=== PATIENT | male | born 1960 | race Caucasian/White ===

== ENCOUNTER → 2018-06-10 | Outpatient (CLI) | payer BC ==
--- NOTE | 2018-06-10 17:56 | CONS ---
CONSULTATION DATE OF SERVICE: 06/10/2018. 58-year-old gentleman who has been re-evaluated in Sleep Center for obstructive sleep apnea-hypopnea syndrome. HISTORY OF PRESENT ILLNESS/SLEEP WAKE EVALUATION: Patient has history of obstructive sleep apnea-hypopnea syndrome since 2005. First sleep study done in our Sleep Center. Since that time patient is on treatment with CPAP every night. Now he is using his second CPAP unit. According to patient, no snoring with the machine. His sleep schedule on working days from 9 p.m. to 4:10 am and on weekends from 10 p.m. to 6 a.m. No problems with falling asleep. No TV in bedroom. He wakes up from sleep once with nocturia. [place] Sleepiness Scale today is significantly increased to 17. I checked patient's CPAP unit. The patient is using equipment every night 29 out of 30 nights for more than 4 hours. Average usage is 7.3 hours. CPAP pressure is 8 cm of water. Recently patient developed a problem with his nose started to have episodes of bleeding from the nose and he feels that a humidifier does not work on his CPAP unit. PAST MEDICAL HISTORY: Positive for acid reflux, hypothyroidism. PAST SURGICAL HISTORY: Hernia repair, right kidney surgery. MEDICATIONS: Aspirin, Zantac, Synthroid. SOCIAL HISTORY: Positive for smoking for about 10 years, about 1 pack per week, quit 20 years ago. Alcohol consumption on weekends up to 5 drinks. FAMILY HISTORY: Family history of cancers. REVIEW OF SYSTEMS: Excessive daytime sleepiness, even while patient using his CPAP equipment. PHYSICAL EXAM: gentleman without distress. BP 128/82, HR 76, RR 16, height 6 feet, weight 221 pounds. Body mass index 29.9, temperature 97.6, oxygen saturation at room air 97%. Oropharynx extremely low position of soft palate, Mallampati 4, wide neck, 17-1/4 inches in circumference. Abdomen slightly obese. Neck Supple, no JVD. Thyroid is not palpable. LUNGS Clear to percussion and to auscultation. Good air exchange. No wheezing or rhonchi. HEART S1, S2 regular. No murmurs, gallops, or rubs. ABDOMEN: Slightly obese. Soft and nontender. Bowel sounds are present. No organomegaly appreciated. EXTREMITIES No clubbing or cyanosis. ALKYLATION OPERATOR Awake, alert, and oriented X3. Cranial nerves 2 to 7 intact. There is no fasciculation or atrophy. noted. No focal deficits observed. IMPRESSION: 1. Obstructive sleep apnea-hypopnea syndrome for 12 years. The patient continued to use his CPAP equipment every night for the whole night. Presently, some problem with his CPAP unit probably humidifier does not work properly. Patient developed bleeding from his nose, significant excessive daytime sleepiness. [place] Sleepiness Scale increased to 17. Extremely low position of soft palate. Restriction of nasal breathing. 2. Hypothyroidism. 3. Acid reflux. 4. Status post hernia repair. 5. Status post right kidney surgery. PLAN: 1. Prescription to replace CPAP unit to the new unit with heated humidifier and heated tube. Range of the pressure up to 10 cm of water. 2. Watching and losing weight. 3. Sleep hygiene with regular time in bed for at least 8 hours. 4. Continue to use CPAP equipment every night for the whole night. 5. No driving if feeling sleepiness. 6. Followup visit in 1 month after patient will get his new CPAP unit. Thank you very much for allowing me to participate in management of your patient. Sincerely, Sumanth Berry MD, PhD, FAASM Diplomat of [employer] Clocksmith of [facility] [place] MMODL / IJN: [id number] /
== END | disposition home or self-care (01) ==
LOC: SLEEP 15:04
PROVIDERS: ATTEND Internal Medicine
DX: G47.33 Obstructive sleep apnea (adult) (pediatric) (principal); E03.9 Hypothyroidism, unspecified; K21.9 Gastro-esophageal reflux disease without esophagitis; Z87.891 Personal history of nicotine dependence; Z99.89 Dependence on other enabling machines and devices; Z98.890 Other specified postprocedural states; Z79.82 Long term (current) use of aspirin; Z79.899 Other long term (current) drug therapy
CPT/HCPCS: 99211

== ENCOUNTER → 2018-09-17 | Outpatient (CLI) | payer BC ==
--- NOTE | 2018-09-17 16:09 | PN ---
PROGRESS NOTE DATE OF SERVICE: 09/17/2018 This patient is a 58-year-old gentleman who has been followed in Sleep Center for treatment of obstructive sleep apnea-hypopnea syndrome. Recently patient received a new CPAP unit. Today is his first visit after he received the new CPAP machine. The patient is able to use CPAP equipment every night for the whole night. He likes the new machine. No problem with the humidity or mask fitting. I checked his CPAP unit. CPAP pressure is 8 cm of water, as was recommended. Usage is 100% of the time for more than 4 hours. Average usage is 7.1 hours per night. Leak is only 2 L/minute, which is perfect. Apnea-hypopnea index is only 0.8, which is absolutely normal. MEDICATIONS: 1. Zantac. 2. Synthroid. 3. Aspirin. PHYSICAL EXAMINATION: GENERAL: A pleasant patient in no distress. VITAL SIGNS: BP 120/82, HR 71, RR 16, weight 224.0, temperature 97.9, oxygen saturation at room air 95%. [place] Sleepiness Scale is 2. HEENT: PERRLA, EOMI. Evaluation of oropharynx showed tongue protrudes midline. Extremely low position of soft palate. Mallampati IV. NECK: Supple. No JVD. Thyroid is not palpable. LUNGS: Clear to percussion and to auscultation. Good air exchange. No wheezing or rhonchi. HEART: S1, S2 regular. No murmurs, gallops or rubs. ABDOMEN: Soft and nontender. Bowel sounds are present. No organomegaly. EXTREMITIES: No clubbing or cyanosis. CHAPLAIN RESIDENT: Awake, alert, and oriented X3. Cranial nerves 2 to 7 intact. There is no fasciculation or atrophy. noted. No focal deficits observed. IMPRESSION: 1. Obstructive sleep apnea-hypopnea syndrome. Patient demonstrated 100% compliance with treatment, benefitting from treatment. Totally normal respiration while using CPAP. 2. Hypothyroidism. 3. Acid reflux. 4. Status post hernia repair. 5. Status post right kidney surgery. PLAN: 1. Patient will continue to use CPAP equipment every night for the whole night. 2. Watching weight. 3. Sleep hygiene with regular time in bed for at least 7-1/2 to 8 hours. 4. No driving if feeling any sleepiness. 5. We will maintain all necessary prescriptions for all CPAP supplies, including heated tube, filters, mask. Thank you very much for allowing me to participate in the management of your patient. Sincerely, Sumanth Berry MD, PhD, FAASM Diplomat of [place] [employer] [employer] Emanations Analysis Technician of [facility] [place] MMNARINDER / MARIAELENA: [id number] /
== END | disposition home or self-care (01) ==
LOC: SLEEP 15:17
PROVIDERS: ATTEND Internal Medicine
DX: G47.33 Obstructive sleep apnea (adult) (pediatric) (principal); E03.9 Hypothyroidism, unspecified; K21.9 Gastro-esophageal reflux disease without esophagitis; Z98.890 Other specified postprocedural states; Z79.82 Long term (current) use of aspirin; Z79.899 Other long term (current) drug therapy; Z99.89 Dependence on other enabling machines and devices

== ENCOUNTER → 2019-11-01 | Outpatient (CLI) | payer BC | END | disposition home or self-care (01) | LOC: NEUROMAIN 06:44 | PROVIDERS: ATTEND Otolaryngology | DX: Z53.9 Procedure and treatment not carried out, unspecified reason (principal) ==

== ENCOUNTER → 2022-04-22 | Outpatient (CLI) | payer BC ==
--- NOTE | 2022-04-22 19:13 | CT ---
EXAMINATION TYPE: CT iac wo con CT DLP: 150.0 mGycm, Automated exposure control for dose reduction was used. DATE OF EXAM: 04/22/2022 5:31 PM INDICATION: Patient age:Male; 62 years old; Reason for study: H39.19 TINNITUS, UNSPECIFIED EAR; COMPARISON: CT brain 05/25/2019. TECHNIQUE: Multiple thin axial images were obtained through the temporal bones and internal auditory canals. Additional coronal reformatted images were obtained. No IV contrast was utilized. CT Contrast: Contrast used: none. FINDINGS: Right Temporal Bone: External Ear: The external auditory canal is unremarkable, The tympanic membrane is present and unrem arkable. Middle Ear: The ossicles demonstrate a normal appearance. Prussak's space is clear and the scutum i s intact. There is no evidence of osseous erosion and the tegmen tympani is intact. Inner Ear: Cochlea, vestibule and semi circular canals are unremarkable. No evidence of carotid adilene l dehiscence. Two and a half turns of the cochlea are identified. The vestibular aqueduct is not enl arged. Mastoid Air Cells: The mastoid air cells are clear. The tegmen mastoideum is intact. The aditus ad an trum is clear. Internal Auditory Canal: The internal auditory canal is unremarkable. Left Temporal Bone: External Ear: The external auditory canal is unremarkable, The tympanic membrane is present and unrem arkable. Middle Ear: The ossicles demonstrate a normal appearance. Prussak's space is clear and the scutum i s intact. There is no evidence of osseous erosion and the tegmen tympani is intact. Inner Ear: Cochlea, vestibule and semi circular canals are unremarkable. No evidence of carotid adilene l dehiscence. Two and a half turns of the cochlea are identified. The vestibular aqueduct is not enl arged. Mastoid Air Cells: The mastoid air cells are clear. The tegmen mastoideum is intact. The aditus ad an trum is clear. Internal Auditory Canal: The internal auditory canal is unremarkable. Other: Mild paranasal sinus disease with mucosal thickening. Right nancy bullosa. Mild leftward nasa l septal deviation. Mild narrowing of the ostiomeatal units. IMPRESSION: 1. Normal internal auditory canal study. 2. Mild to moderate paranasal sinus disease.
== END | disposition home or self-care (01) ==
LOC: RADCTMAIN 17:18
PROVIDERS: ATTEND Otolaryngology
DX: J34.89 Other specified disorders of nose and nasal sinuses (principal); H93.19 Tinnitus, unspecified ear; H91.90 Unspecified hearing loss, unspecified ear
CPT/HCPCS: 70480

== ENCOUNTER → 2022-08-07 | Outpatient (CLI) | payer BC ==
--- NOTE | 2022-08-07 16:09 | P.PN ---
Subjective DATE: 08/07/2022 FOLLOW UP VISIT. Patient with obstructive sleep apnea hypopnea syndrome return to sleep center for follow-up visit. Information from previous visit have been reviewed. Patient is using PAP equipment every night for the whole night, getting PAP supplies in time. The patient does not have significant problems with the mask, PAP unit and humidification. [place] sleepiness scale is 0, which is perfect. I checked information from PAP unit. PAP unit pressure 7 cm H2O. Usage is 97 % for more then 4 hours, average 6.9 hours per night. Leak is 10.6 l/m, which is in acceptable range. Apnea Hypopnea Index is perfect 0.5. MEDICATIONS:1. Levothyroxine 137 g once a day During physical exam: GENERAL: A pleasant patient without any distress. VITAL SIGNS: BP 147/55, HR 60, RR 16, weight 212.4, temperature 97.9, oxygen saturation at room air 97 % . HEENT: PERRLA, EOMI.low position of soft palate, Mallapati 4 . NECK: Supple. No JVD. LUNGS: Clear to percussion and to auscultation. Good air exchange. No wheezing or rhonchi. HEART: S1, S2 regular. ABDOMEN: Soft and nontender.[] EXTREMITIES: No clubbing or cyanosis. HAND STRIPER: Awake, alert, and oriented x3. No focal deficit. Impressions: 1. Obstructive sleep apnea-hypopnea syndrome. Patient demonstrated great compliance with treatment, benefiting from treatment. 2. Hypothyroidism. 3. Acid reflux. 4. Status post hernia repair. 5. Status post right kidney surgery. Plan: 1. Continue using PAP equipment every night for the whole night. 2. To change air filter at least 1-2 times per month. 3. PAP unit should stay lower then position of the head. 4. Advised patient to remove all remaining water from humidifier canister daily and make it dry after each usage. Refill canister with fresh distilled water before each usage. 5. Sleep hygiene with regular time in bed for at least 8 hours. 6. Precautions related to driving. No driving if feel any sleepiness. 7. I will maintain prescription for PAP supplies including mask, tube, filters. 8. Follow up visit in 6 months or earlier if patient has any problems. 9. Watching weight. Thank you very much for allowing me to participate in the management of your patient. Sumanth Berry MD, PhD, FAASM. Diplomat of [place] [employer], Sleep Medicine Board by [employer] Coat Fitter of [facility] [place]
== END ==
LOC: SLEEP 15:46
PROVIDERS: ATTEND Internal Medicine
DX: G47.33 Obstructive sleep apnea (adult) (pediatric) (principal); E03.9 Hypothyroidism, unspecified; K21.9 Gastro-esophageal reflux disease without esophagitis; Z98.890 Other specified postprocedural states; Z87.448 Personal history of other diseases of urinary system; Z99.89 Dependence on other enabling machines and devices; Z79.890 Hormone replacement therapy; Z87.891 Personal history of nicotine dependence
CPT/HCPCS: 99212

== ENCOUNTER → 2023-03-12 | Outpatient (CLI) | payer BC ==
--- NOTE | 2023-03-12 11:31 | P.PN ---
Subjective DATE: 03/12/2023 FOLLOW UP VISIT. Patient with obstructive sleep apnea hypopnea syndrome return to sleep center for follow-up visit. Information from previous visit have been reviewed. Patient is using PAP equipment every night for the whole night, getting PAP supplies in time. The patient does not have significant problems with the mask, PAP unit and humidification. [place] sleepiness scale is 8, which is in normal range. I checked information from PAP unit. PAP unit pressure 7 cm H2O. Usage is 100 % for more then 4 hours, average 8 hours per night. Patient is using 2 CPAP units. Leak is 12.9 l/m, which is in acceptable range. Apnea Hypopnea Index is 1.1, which is normal. MEDICATIONS:1. Synthroid 137 g once a day 2. Vitamin D During physical exam: GENERAL: A pleasant patient without any distress. VITAL SIGNS: BP 144/95, HR 70, RR 16, weight 214.4, temperature 97.4, oxygen saturation at room air 97 % . HEENT: PERRLA, EOMI.low position of soft palate, Mallapati 4 . NECK: Supple. No JVD. LUNGS: Clear to percussion and to auscultation. Good air exchange. No wheezing or rhonchi. HEART: S1, S2 regular. ABDOMEN: Soft and nontender.[] EXTREMITIES: No clubbing or cyanosis. JIGGER OPERATOR: Awake, alert, and oriented x3. No focal deficit. Impressions: 1. Obstructive sleep apnea-hypopnea syndrome. Patient demonstrated great compliance with treatment, benefiting from treatment. 2. Hypothyroidism. 3. Acid reflux. 4. Status post right kidney surgery. 5. Status post hernia repair. Plan: 1. Continue using PAP equipment every night for the whole night. 2. To change air filter at least 1-2 times per month. 3. PAP unit should stay lower then position of the head. 4. Advised patient to remove all remaining water from humidifier canister daily and make it dry after each usage. Refill canister with fresh distilled water before each usage. 5. Sleep hygiene with regular time in bed for at least 8 hours. 6. Precautions related to driving. No driving if feel any sleepiness. 7. I will maintain prescription for PAP supplies including mask, tube, filters. 8. Watching weight. 9. Follow up visit in 6 months or earlier if patient has any problems. Thank you very much for allowing me to participate in the management of your patient. Sumanth Berry MD, PhD, FAASM. Diplomat of [place] [employer] Sleep Medicine, Sleep Medicine Board by [employer] Medicine Metalsmith Helper of [facility] [place]
== END ==
LOC: 3 N SLEEP 10:45
PROVIDERS: ATTEND Internal Medicine
DX: G47.33 Obstructive sleep apnea (adult) (pediatric) (principal); E03.9 Hypothyroidism, unspecified; K21.9 Gastro-esophageal reflux disease without esophagitis; Z98.890 Other specified postprocedural states; Z99.89 Dependence on other enabling machines and devices; Z79.890 Hormone replacement therapy; Z87.891 Personal history of nicotine dependence
CPT/HCPCS: 99212

== ENCOUNTER → 2024-02-05 | Outpatient (CLI) | payer BC ==
[2024-02-05 10:35] VITALS: BP 118/66; PULSE 64; RESP 16; TEMP 98
--- NOTE | 2024-02-05 10:53 | P.PROGSL ---
Subjective DATE: 02/05/2024 FOLLOW UP VISIT. Patient with obstructive sleep apnea hypopnea syndrome return to sleep center for follow-up visit. Information from previous visit have been reviewed. Patient is using PAP equipment every night for the whole night, getting PAP supplies in time. PAP unit is old and noisy. [place] sleepiness scale is 9 which is borderline normal. I checked information from PAP unit. PAP unit pressure 7 cm H2O. Usage is 100% for more then 4 hours, average 8.1 hours per night. Leak is 13 l/m, which is in acceptable range. Apnea Hypopnea Index is 1.4, which is normal. MEDICATIONS have been reviewed, please see below. During physical exam: GENERAL: A pleasant patient without any distress. VITAL SIGNS: Please see below, weight is 213 lbs. HEENT: PERRLA, EOMI.low position of soft palate, Mallapati 4 . NECK: Supple. No JVD. LUNGS: Clear to percussion and to auscultation. Good air exchange. No wheezing or rhonchi. HEART: S1, S2 regular. ABDOMEN: Soft and nontender.[] EXTREMITIES: No clubbing or cyanosis. AIRCREWMAN: Awake, alert, and oriented x3. No focal deficit. Impressions: 1. Obstructive sleep apnea-hypopnea syndrome. Patient demonstrated great compliance with treatment, benefiting from treatment. 2. Hypothyroidism. 3. Acid reflux. 4. Status post hernia repair. 5. Status post right kidney surgery. Plan: 1. Continue using PAP equipment every night for the whole night. Prescription to replace CPAP unit, because CPAP unit is old and noisy. 2. Sleep hygiene with regular time in bed for at least 7.5-8 hours 3. PAP unit should stay lower then position of the head. 4. Advised patient to remove all remaining water from humidifier canister daily and make it dry after each usage. Refill canister with fresh distilled water before each usage. 5. Watching weight. 6. Precautions related to driving. No driving if feel any sleepiness. 7. I will maintain prescription for PAP supplies including mask, tube, filters. 8. Follow up visit in 1-3 months after patient will get new CPAP unit to evaluate compliance and clinical response on treatment. Thank you very much for allowing me to participate in the management of your patient. Sumanth Berry MD, PhD, FAASM. Diplomat of [employer] [employer] Medicine, Sleep Medicine Board by [employer] Orchard Sprayer of [facility] [place] Objective - Vital Signs Vital Signs: Vital Signs Temp 98 F 02/05/24 10:30 Pulse 64 02/05/24 10:30 Resp 16 02/05/24 10:30 BP 118/66 02/05/24 10:30 Pulse Ox 98 02/05/24 10:30 FiO2 Intake & Output 02/04/24 02/05/24 02/05/24 18:59 06:59 18:59 Weight 96.615 kg Home Medications: Home Medications Medication Instructions Recorded Confirmed Type Levothyroxine Sodium [Synthroid] 125 mcg PO HS 05/25/19 02/05/24 History Meclizine [Antivert] 25 mg PO TID PRN #10 tab 05/25/19 Rx
== END ==
LOC: 3 N SLEEP 10:16
PROVIDERS: ATTEND Internal Medicine
DX: G47.33 Obstructive sleep apnea (adult) (pediatric) (principal); E03.9 Hypothyroidism, unspecified; K21.9 Gastro-esophageal reflux disease without esophagitis; Z98.890 Other specified postprocedural states; Z99.89 Dependence on other enabling machines and devices; Z87.891 Personal history of nicotine dependence; Z79.890 Hormone replacement therapy
CPT/HCPCS: 99212

== ENCOUNTER → 2024-05-27 | Outpatient (CLI) | payer BC ==
[2024-05-27 11:30] VITALS: BP 128/80; PULSE 68; RESP 16; TEMP 97.5
--- NOTE | 2024-05-27 11:39 | P.PROGSL ---
Subjective DATE: 05/27/2024 FOLLOW UP VISIT. Patient with obstructive sleep apnea hypopnea syndrome return to sleep center for follow-up visit. This is first visit after patient received new CPAP unit AirSense 11. Information from previous visit have been reviewed. Patient is using PAP equipment every night for the whole night, getting PAP supplies in time. The patient does not have significant problems with the mask, PAP unit and humidification. [place] sleepiness scale is 8, which is in normal range. I checked information from PAP unit. PAP unit pressure 7 cm H2O. Usage is 100% for more then 4 hours, average 7.5 hours per night. Leak is 21.0 l/m, which is in acceptable range. Apnea Hypopnea Index is 0.4, which is perfect. MEDICATIONS have been reviewed, please see below. During physical exam: GENERAL: A pleasant patient without any distress. VITAL SIGNS: Please see below, weight is 215 lbs. HEENT: PERRLA, EOMI.low position of soft palate, Mallapati 4 . NECK: Supple. No JVD. LUNGS: Clear to percussion and to auscultation. Good air exchange. No wheezing or rhonchi. HEART: S1, S2 regular. ABDOMEN: Soft and nontender.[] EXTREMITIES: No clubbing or cyanosis. MODEL MAKER SCALE: Awake, alert, and oriented x3. No focal deficit. Impressions: 1. Obstructive sleep apnea-hypopnea syndrome. Patient demonstrated great compliance with treatment, benefiting from treatment. 2. Acid reflux. 3. Hypothyroidism. 4. Status post right kidney surgery. 5. Status post hernia repair. Plan: 1. Continue using PAP equipment every night for the whole night. 2. Sleep hygiene with regular time in bed for at least 7.5-8 hours 3. PAP unit should stay lower then position of the head. 4. Advised patient to remove all remaining water from humidifier canister daily and make it dry after each usage. Refill canister with fresh distilled water before each usage. 5. Watching weight. 6. Precautions related to driving. No driving if feel any sleepiness. 7. I will maintain prescription for PAP supplies including mask, tube, filters. 8. Follow up visit in 8 months or earlier if patient has any problems. Thank you very much for allowing me to participate in the management of your patient. Sumanth Berry MD, PhD, FAASM. Diplomat of [place] [employer] Medicine, Sleep Medicine Board by [place] Medicine Grape Picker of [facility] [place] Objective - Vital Signs Vital Signs: Vital Signs Temp 97.5 F L 05/27/24 11:29 Pulse 68 05/27/24 11:29 Resp 16 05/27/24 11:29 BP 128/80 05/27/24 11:29 Pulse Ox 96 05/27/24 11:29 FiO2 Intake & Output 05/26/24 05/27/24 05/27/24 18:59 06:59 18:59 Weight 97.522 kg Home Medications: Home Medications Medication Instructions Recorded Confirmed Type Levothyroxine Sodium [Synthroid] 125 mcg PO HS 05/25/19 02/05/24 History Meclizine [Antivert] 25 mg PO TID PRN #10 tab 05/25/19 Rx
== END ==
LOC: 3 N SLEEP 11:22
PROVIDERS: ATTEND Internal Medicine
DX: G47.33 Obstructive sleep apnea (adult) (pediatric) (principal); K21.9 Gastro-esophageal reflux disease without esophagitis; E03.9 Hypothyroidism, unspecified; Z94.0 Kidney transplant status; Z87.448 Personal history of other diseases of urinary system; Z98.890 Other specified postprocedural states; Z87.891 Personal history of nicotine dependence
CPT/HCPCS: 99212